=== PATIENT | female | born 1955 ===

== ENCOUNTER 2019-10-17 06:19 | Day surgery (SDC) | payer OTHER ==
[~2019-10-17 06:19] MED LIST: CYMBALTA30 MG PO; FLEXERIL PO; LEVSIN/SL0.125 MG SL; MOTRIN IB200 M1; NEXIUM 24HR20 M1 PO; PRILOSEC OTC20 MG PO; TYLENOL ARTHRI650 MG PO; VALIUM PO; VITAMIN C500 M6; VITAMIN D350000 UNIT PO; VOLTAREN-XR100 MG; VOLTAREN100 GM; ZOCOR20 MG PO
== END 2019-10-17 13:50 | disposition home or self-care (01) ==
LOC: CIR.AMB 06:19 → ADM 12:30 → CIR.AMB 13:50
DX: M75.121 Complete rotator cuff tear or rupture of right shoulder, not specified as traumatic (principal); M75.21 Bicipital tendinitis, right shoulder; M24.111 Other articular cartilage disorders, right shoulder